=== PATIENT | male | born 1995 | race Caucasian/White ===

== ENCOUNTER 2018-06-11 20:21 | Emergency (ER) | payer OTHER ==
[~2018-06-11] VITALS: Ht 190.5 cm; Wt 136.1 kg
[2018-06-11 20:26] VITALS: TEMP 98.6
[2018-06-11 21:13] LABS: PLATELET COUNT 368 K/uL (142-355)
[2018-06-11 22:32] VITALS: BP 131/73
== END 2018-06-11 22:33 | disposition home or self-care (01) ==
LOC: ED 20:21
DX: J45.909 Unspecified asthma, uncomplicated (principal)
CPT/HCPCS: 36415; 80053; 80307; 81000; 85027; 94664; 96374; 99284; J2930

== ENCOUNTER 2018-07-24 16:27 | Emergency (ER) | payer OTHER ==
[~2018-07-24] VITALS: Ht 188 cm; Wt 138.3 kg
[2018-07-24 18:13] LABS: PLATELET COUNT 306 K/uL (142-355)
[2018-07-24 18:20] LABS: POTASSIUM 3.7 mmol/L (3.6-5.2)
[2018-07-24 19:25] VITALS: BP 134/87; TEMP 98.9
== END 2018-07-24 19:25 | disposition home or self-care (01) ==
LOC: ED 16:27
DX: J45.909 Unspecified asthma, uncomplicated (principal); J40 Bronchitis, not specified as acute or chronic
CPT/HCPCS: 36415; 80053; 85027; 87502; 87651; 94664; 96374; 99284; J2930

== ENCOUNTER 2019-05-18 09:46 | Emergency (ER) | payer OTHER ==
[~2019-05-18] VITALS: Ht 188 cm; Wt 138.3 kg
[2019-05-18 09:55] VITALS: TEMP 97.5
[2019-05-18 10:40] LABS: PLATELET COUNT 327 K/uL (142-355)
[2019-05-18 11:15] LABS: POTASSIUM 4.3 mmol/L (3.6-5.2)
[2019-05-18 11:44] VITALS: BP 136/82
== END 2019-05-18 11:45 | disposition home or self-care (01) ==
LOC: ED 09:46
PROVIDERS: Family Medicine
DX: J45.901 Unspecified asthma with (acute) exacerbation (principal)
CPT/HCPCS: 80053; 85027; 87502; 87651; 94664; 96372; 99283; J2930

== ENCOUNTER 2020-02-07 06:58 | Emergency (ER) | payer OTHER ==
[~2020-02-07] VITALS: Ht 188 cm; Wt 133.8 kg
[2020-02-07 07:15] VITALS: BP 150/92; TEMP 98
[2020-02-07 07:29] LABS: PLATELET COUNT 312 K/uL (142-355)
== END 2020-02-07 10:10 | disposition home or self-care (01) ==
LOC: ED 06:58
PROVIDERS: Emergency Medicine
DX: R10.12 Left upper quadrant pain (principal); K29.60 Other gastritis without bleeding
CPT/HCPCS: 36415; 80053; 81000; 82150; 83690; 85027; 96374; 99284; J1885

== ENCOUNTER 2020-02-25 02:56 | Emergency (ER) | payer OTHER ==
[~2020-02-25] VITALS: Ht 188 cm; Wt 133.8 kg
[2020-02-25 03:40] LABS: PLATELET COUNT 326 K/uL (142-355)
[2020-02-25 03:57] LABS: SODIUM 142 mmol/L (136-145)
[2020-02-25 04:34] LABS: PARTIAL THROMBOPLASTIN TIME 23.9 SECONDS (24.5-33.6)
[2020-02-25 04:54] VITALS: BP 134/73; TEMP 98.2
== END 2020-02-25 04:54 | disposition home or self-care (01) ==
LOC: ED 02:56
PROVIDERS: Hospitalist
DX: R07.89 Other chest pain (principal); R09.1 Pleurisy
CPT/HCPCS: 36415; 80053; 82550; 83880; 84484; 85027; 85379; 85610; 85730; 93005; 96374; 96375; 96376; 99284; J1885; J2270; J2405; J2930

== ENCOUNTER 2020-08-28 08:13 | Emergency (ER) | payer OTHER ==
[~2020-08-28] VITALS: Ht 188 cm; Wt 133.8 kg
[2020-08-28 08:23] VITALS: BP 155/86; TEMP 98
== END 2020-08-28 09:44 | disposition home or self-care (01) ==
LOC: ED 08:13
DX: S91.342A Puncture wound with foreign body, left foot, initial encounter (principal); W45.8XXA Other foreign body or object entering through skin, initial encounter; Y92.89 Other specified places as the place of occurrence of the external cause
CPT/HCPCS: 99282; 99283; J0696; J1885

== ENCOUNTER 2021-01-22 14:18 | Emergency (ER) | payer OTHER ==
[~2021-01-22] VITALS: Ht 190.5 cm; Wt 136.1 kg
[2021-01-22 14:25] VITALS: TEMP 97.2
[2021-01-22 14:55] VITALS: BP 128/66
== END 2021-01-22 14:57 | disposition home or self-care (01) ==
LOC: ED 14:18
DX: H10.89 Other conjunctivitis (principal)
CPT/HCPCS: 99281

== ENCOUNTER 2021-04-02 10:40 | Emergency (ER) | payer OTHER ==
[~2021-04-02] VITALS: Ht 188 cm; Wt 134.7 kg
[2021-04-02 10:45] VITALS: TEMP 97.9
[2021-04-02 11:14] LABS: PLATELET COUNT 254 K/uL (142-355)
[2021-04-02 11:19] LABS: SODIUM 142 mmol/L (136-145)
[2021-04-02 11:28] LABS: PARTIAL THROMBOPLASTIN TIME 24.7 SECONDS (24.5-33.6)
[2021-04-02 12:15] VITALS: BP 122/74
== END 2021-04-02 12:18 | disposition home or self-care (01) ==
LOC: ED 10:40
PROVIDERS: Hospitalist
DX: R07.89 Other chest pain (principal); J45.998 Other asthma; K21.9 Gastro-esophageal reflux disease without esophagitis
CPT/HCPCS: 80053; 82550; 83880; 84484; 85027; 85610; 85730; 93005; 94664; 99283; J2930

== ENCOUNTER 2021-09-04 19:58 | Emergency (ER) | payer OTHER ==
[~2021-09-04] VITALS: Ht 188 cm; Wt 134.7 kg
[2021-09-04 21:13] LABS: PLATELET COUNT 336 K/uL (142-355)
[2021-09-04 21:20] LABS: POTASSIUM 4.3 mmol/L (3.6-5.2)
[2021-09-04 22:26] VITALS: BP 127/85; TEMP 98.4
== END 2021-09-04 22:26 | disposition home or self-care (01) ==
LOC: ED 19:58
PROVIDERS: Hospitalist
DX: J40 Bronchitis, not specified as acute or chronic (principal); J45.901 Unspecified asthma with (acute) exacerbation; Z20.822 Contact with and (suspected) exposure to COVID-19
CPT/HCPCS: 36415; 80048; 85027; 87502; 87635; 87651; 94664; 96374; 99284; J2930; U0003

== ENCOUNTER 2021-09-13 21:23 | Emergency (ER) | payer OTHER ==
[~2021-09-13] VITALS: Ht 188 cm; Wt 129.3 kg
[2021-09-13 22:10] VITALS: BP 131/81; TEMP 98
== END 2021-09-13 22:15 | disposition home or self-care (01) ==
LOC: ED 21:23
DX: J45.901 Unspecified asthma with (acute) exacerbation (principal); F17.290 Nicotine dependence, other tobacco product, uncomplicated
CPT/HCPCS: 94640; 94664; 96372; 99283; J2930

== ENCOUNTER 2022-10-19 17:47 | Emergency (ER) | payer OTHER ==
[~2022-10-19] VITALS: Ht 188 cm; Wt 129.3 kg
[2022-10-19 18:00] VITALS: BP 165/96; TEMP 99.2
== END 2022-10-19 22:04 | disposition home or self-care (01) ==
LOC: ED 17:47
DX: S13.4XXA Sprain of ligaments of cervical spine, initial encounter (principal); V53.6XXA Passenger in pick-up truck or van injured in collision with car, pick-up truck or van in traffic accident, initial encounter; Y92.488 Other paved roadways as the place of occurrence of the external cause
CPT/HCPCS: 96372; 99283; J1885

== ENCOUNTER 2022-12-06 12:19 | Emergency (ER) | payer OTHER ==
[~2022-12-06] VITALS: Ht 188 cm; Wt 129.3 kg
[2022-12-06 12:35] VITALS: BP 143/89; TEMP 98.5
== END 2022-12-06 14:34 | disposition home or self-care (01) ==
LOC: ED 12:19
DX: J20.9 Acute bronchitis, unspecified (principal); J02.8 Acute pharyngitis due to other specified organisms; F17.290 Nicotine dependence, other tobacco product, uncomplicated; Z20.822 Contact with and (suspected) exposure to COVID-19
CPT/HCPCS: 87502; 87635; 87651; 94664; 99283; U0001